=== PATIENT | male | born 1985 | race Caucasian/White ===

== ENCOUNTER 2017-03-02 21:14 | Emergency (ER) | payer OTHER, SELFPAY ==
[~2017-03-02 21:14] MED LIST: Sterile Water Irrigation 250 ML BOT ONE
[2017-03-02] MEDS ORDERED: Lidocaine 2% w/Epinephrine 1:200K 20 ML VIAL ONE (21:34)
[2017-03-02] MEDS ORDERED: Morphine 4 MG/ML Carpuject ONE (21:50)
[2017-03-02] MEDS ORDERED: Ketorolac Tromethamine 30 MG/ML VIAL ONE (21:50)
[2017-03-02] MEDS ORDERED: Ondansetron HCl/PF 4 MG/2 ML Vial ONE (21:50)
--- NOTE | 2017-03-02 22:52 | RAD ---
EXAM: ONE VIEW PELVIS 03/02/17 HISTORY: Fall onto a hard object. COMPARISON: None. FINDINGS: Bony pelvis is intact. Sacral ala are preserved. No evidence of fracture. IMPRESSION: No fracture. POS: [facility]
--- NOTE | 2017-03-02 22:57 | RAD ---
EXAM: LUMBAR SPINE TWO VIEWS 03/02/17 HISTORY: Patient fell onto a hard object. Pain. COMPARISON: None. FINDINGS: Two views of lumbar spine demonstrate five lumbar type vertebral bodies. Vertebral body height is ma intained. Disc space heights are preserved. No fracture. IMPRESSION: No fracture. POS: [facility]
--- NOTE | 2017-03-02 22:59 | CT ---
CERVICAL SPINE CT 03/02/17 INDICATION: Injury, pain. FINDINGS: Craniocervical junction is intact. There is reversal of normal cervical curvature which may be posit ional. Correlate clinically. No evidence of compression fracture, subluxation, retropulsion of bone into the vertebral canal, or evidence of facet malalignment. IMPRESSION: No acute osseous abnormality of the cervical spine identified. POS: [facility]
[2017-03-02] MEDS ORDERED: Cephalexin 500 MG CAP ONE (23:00)
[2017-03-02] MEDS ORDERED: Triple Antibiotic Oint 1 GM Packet ONE (23:00)
--- NOTE | 2017-03-02 23:03 | CT ---
EXAM: NONCONTRAST HEAD CT 03/02/17 HISTORY: Patient had a hard fall. Blow to the forehead. COMPARISON: None. TECHNIQUE: Noncontrast head CT is performed from skull base to skull vertex. FINDINGS: No parenchymal hemorrhage. No extra-axial hematoma. No midline shift. Basilar cisterns are patent. B rain volume, age appropriate. Cortical rivas-white matter differentiation is preserved. Ventricles and sulci are patent and symmetric. Adequate aeration of the sinuses and mastoid air cells. Small right frontal scalp hematoma with subc utaneous emphysema due to laceration. Underlying calvarium and the remainder of the calvarium are in tact. IMPRESSION: 1. No intracranial posttraumatic sequela. 2. Posttraumatic changes of the right frontal scalp. POS: [facility]
== END 2017-03-02 23:10 ==
LOC: MADERS 21:14
DX: S01.112A Laceration without foreign body of left eyelid and periocular area, initial encounter (principal); S01.81XA Laceration without foreign body of other part of head, initial encounter; M54.5 Low back pain; Y04.2XXA Assault by strike against or bumped into by another person, initial encounter; Y92.149 Unspecified place in prison as the place of occurrence of the external cause
CPT/HCPCS: 12002; 12011; 70450; 72100; 72125; 72170; 96374; 96375; J1885; J2270; J2405